=== PATIENT | female | born 1975 | race Caucasian/White ===

== ENCOUNTER 2017-11-20 19:23 | Emergency (ER) | payer OTHER ==
--- OUTSIDE RECORDS SUMMARY | 2017-11-20 19:25 | XMS REPORT | Summary of Care ---
:1975 Author Organization [facility] [place] Address [address] [place], [place] [address]- Encounter HQ Encntr_alias(FIN) [id number] Date(s): 03/28/16 - 03/28/16 [facility] [place] [id number] [place] [address], [address] [place] [address]- [id number] Discharge Disposition: Home or Self Care Attending Physician: Minh Taylor MD Vital Signs No data available for this section Problem List Condition Effective Dates Status Health Status Informant Hypertension(Confirmed) Resolved Obesity(Confirmed) Active Premature ovarian failure(Confirmed) Resolved Allergies, Adverse Reactions, Alerts Substance Reaction Severity Status NKDA Active Medications No data available for this section Results No data available for this section Immunizations Given and Recorded Vaccine Date Status Refusal Reason diphtheria/pertussis, acel/tetanus adult1 12/20/15 Given influenza virus vaccine, inactivated2 02/25/16 Given 1Result Comment: [facility]:[id number] No [id number] Comment: [facility]#[id number] Procedures Procedure Date Related Diagnosis Body Site section Social History Social History Type Response Smoking Status Never smoker; Exposure to Tobacco Smoke None; Cigarette Smoking Last 365 Days No; Reg Smoking Cessation Counseling No Assessment and Plan No data available for this section
[2017-11-20 20:57] LABS: Urine Blood 2+ (NEG); Urine Glucose NEGATIVE (NEG); Urine Protein 1+ (NEG); Urine Specific Gravity 1.015 (1.005-1.030)
[2017-11-20 21:12] LABS: Basophils % 0.3 % (0-1.3); Eosinophils % 2.8 % (0-4.4); Hematocrit 36.6 % (36.0-45.0); Lymphocytes % 19.6 % (15.3-44.8); MCV 91.6 fL (80-100); MPV 8.9 fL (7.6-11.3); Monocytes % 8.8 % (3.3-12.3); RBC Red Blood Cell Count 3.99 M/uL (3.86-4.86)
[2017-11-20 21:13] LABS: Absolute Lymphocytes (CBC) 1.3 K/uL (0.7-4.9); Absolute Monocytes 0.6 K/uL (0.1-1.3); Absolute Neutrophil 4.5 K/uL (1.8-8.0)
[2017-11-20 21:30] LABS: Bilirubin Total 0.5 mg/dL (0.2-1.0); Protein, Total 7.4 g/dL (6.4-8.2)
--- NOTE | 2017-11-20 22:15 | ER ---
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 ak1 Transition of care: patient was not received from another setting of care. Onset of symptoms is unknown. Risk Assessment: Do you want to hurt yourself or someone else? Patient reports no desire to harm self or others. Initial Sepsis Screen: Does the patient meet any 2 criteria? No. Patient's initial sepsis screen is negative. Does the patient have a suspected source of infection? No. Patient's initial sepsis screen is negative. Care prior to arrival: None. 19:51 Method Of Arrival: Ambulatory ak1 19:51 Acuity: MARCO ANTONIO 3 ak1 Triage Assessment: 19:52 Headache History: The patient has had previous headaches and this one is less severe ak1 than previous episodes. General: Appears in no apparent distress. Behavior is calm, cooperative. Pain: Pain currently is 5 out of 10 on a pain scale. 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 EENT: No signs and/or symptoms were reported regarding the EENT system. Neuro: Level of Consciousness is awake, alert, obeys commands, Oriented to person, place, time, situation, Professor Of Counseling are equal bilaterally Moves all extremities. Gait is steady, Speech is normal, Facial symmetry appears normal, Pupils are PERRLA. Cardiovascular: No deficits noted. Respiratory: Reports shortness of breath. GI: Reports nausea. : No signs and/or symptoms were reported regarding the genitourinary system. Derm: No signs and/or symptoms reported regarding the dermatologic system. Musculoskeletal: Reports pain in face, back and left leg. 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 - Social history:: Smoking status: Patient/guardian denies using tobacco. - Ebola Screening: : No symptoms or risks identified at this time. Screenin:01 Abuse screen: Denies threats or abuse. Denies injuries from another. Nutritional bp screening: No deficits noted. Tuberculosis screening: No symptoms or risk factors identified. Fall Risk None identified. Assessment: 19:59 General: Appears in no apparent distress. comfortable, slender, Behavior is bp cooperative, appropriate for age, anxious. Pain: Complains of pain in head. Neuro: Level of Consciousness is awake, alert, obeys commands, Oriented to person, place, time, situation, Appropriate for age. Cardiovascular: No deficits noted. Respiratory: Airway is patent Respiratory effort is even, unlabored, Respiratory pattern is regular, symmetrical. GI: No signs and/or symptoms were reported involving the gastrointestinal system. : No signs and/or symptoms were reported regarding the genitourinary system. EENT: No deficits noted. Derm: No deficits noted. Musculoskeletal: Circulation, motion, and sensation intact. Range of motion: intact in all extremities. 21:45 Reassessment: ALL CURRENT ORDERS COMPLETED, DISPO PENDING. VS STABLE ON MONITOR. 22:15 Reassessment: D/C ON HOLD FOR CT STONE AND RESULTS. 22:28 Reassessment: PT TO CT WITH SENIOR ACCOUNTING ANALYST. 23:22 Reassessment: PT D/C HOME AMBULATORY, DX WITH SCIATICA AND CKD. bp Vital Signs: 19:52 BP 117 / 92; Pulse 92; Resp 18; Temp 98.2; Pulse Ox 100% on R/A; Weight 81.65 kg (R); ak1 Height 5 ft. 6 in. (167.64 cm) (R); Pain 6/10; 21:45 BP 104 / 64; Pulse 84; Resp 16; Pulse Ox 100% ; wh 22:15 BP 103 / 73; Pulse 77; Resp 14; Pulse Ox 100% ; wh 23:15 BP 109 / 80; Pulse 73; Resp 16; Pulse Ox 100% ; bp 19:52 Body Mass Index 29.05 (81.65 kg, 167.64 cm) ak1 ED Course: 19:24 Patient arrived in ED. es 19:52 Triage completed. ak1 19:52 Arm band placed on Patient placed in waiting room, Patient notified of wait time. ak1 19:58 Lyle Rivero MD is Attending Physician. ps1 19:59 Monty Underwood, RN is Primary Nurse. bp 20:01 Patient has correct armband on for positive identification. Bed in low position. Call bp light in reach. 22:29 No provider procedures requiring assistance completed. Patient did not have IV access during this emergency room visit. 22:32 Stone Protocol In Process Unspecified. EDMS Administered Medications: No medications were administered Outcome: 22:15 Discharge ordered by MD. ps1 23:22 Discharged to home ambulatory. bp 23:22 Condition: stable 23:22 Discharge instructions given to patient, Instructed on discharge instructions, follow up and referral plans. medication usage, Demonstrated understanding of instructions, follow-up care, medications, Prescriptions given X 2. 23:24 Patient left the ED. bp Signatures: Dispatcher [employer] EDMS Marija Lebron Amber RN RN ak1 Ang Ho Monty Underwood, RN RN bp Lyle Rivero MD MD ps1 Corrections: (The following items were deleted from the chart) 19:54 19:51 Acuity: MARCO ANTONIO 4 ak1 ak1 22:29 22:24 Reassessment: D/C ON HOLD FOR CT STONE AND RESULTS [facility]
--- NOTE | 2017-11-20 22:16 | EDPHYS ---
Physician Documentation [facility] Name: Miri Ruelas Age: 41 yrs Sex: Female : 1975 Arrival Date: 11/20/2017 Time: 19:24 Bed 15 Private MD: ED Physician Lyle Rivero HPI: 11/20 23:19 This 41 yrs old Female presents to ER via Ambulatory with complaints of ps1 Fever, Headache, Back Pain. 23:19 patient has a history of lupus and CKD. Presenting with left lower back pain that ps1 radiates down the leg. She states that this has been intermittent for some time. She is concerned because of her kidney 2/2 lupus. Pain rated as moderate. No urinary symptoms. Has had fatigue. No saddle signs or urinary complaints. Not immunocompromised. . 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 - Social history:: Smoking status: Patient/guardian denies using tobacco. - Ebola Screening: : No symptoms or risks identified at this time. ROS: 23:19 Constitutional: Negative for fever, chills, and weight loss, Eyes: Negative for injury, ps1 pain, redness, and discharge, Cardiovascular: Negative for chest pain, palpitations, and edema, Respiratory: Negative for shortness of breath, cough, wheezing, and pleuritic chest pain, Abdomen/GI: Negative for abdominal pain, nausea, vomiting, diarrhea, and constipation. 23:19 MS/Extremity: Negative for injury and deformity, Skin: Negative for injury, rash, and discoloration, Neuro: Negative for headache, weakness, numbness, tingling, and seizure. 23:19 Back: Positive for pain with movement. Exam: 23:19 Constitutional: This is a well developed, well nourished patient who is awake, alert, ps1 and in no acute distress. Head/Face: Normocephalic, atraumatic. Eyes: Pupils equal round and reactive to light, extra-ocular motions intact. Lids and lashes normal. Conjunctiva and sclera are non-icteric and not injected. Chest/axilla: Normal chest wall appearance and motion. Nontender with no deformity. No lesions are appreciated. Cardiovascular: Regular rate and rhythm. No gallops, murmurs, or rubs. Normal PMI, no JVD. No pulse deficits. Respiratory: Lungs have equal breath sounds bilaterally, clear to auscultation and percussion. No rales, rhonchi or wheezes noted. No increased work of breathing, no retractions or nasal flaring. Abdomen/GI: Soft, non-tender, with normal bowel sounds. No distension or tympany. No guarding or rebound. No evidence of tenderness throughout. Back: No spinal tenderness. No costovertebral tenderness. Full range of motion. Skin: Warm, dry with normal turgor. Normal color with no rashes, no lesions, and no evidence of cellulitis. MS/ Extremity: Pulses equal, no cyanosis. Neurovascular intact. Full, normal range of motion. Neuro: Awake and alert, GCS 15, oriented to person, place, time, and situation. Cranial nerves II-XII grossly intact. Sensory grossly intact. Psych: Awake, alert, with orientation to person, place and time. Behavior, mood, and affect are within normal limits. Vital Signs: 19:52 BP 117 / 92; Pulse 92; Resp 18; Temp 98.2; Pulse Ox 100% on R/A; Weight 81.65 kg (R); ak1 Height 5 ft. 6 in. (167.64 cm) (R); Pain 6/10; 21:45 BP 104 / 64; Pulse 84; Resp 16; Pulse Ox 100% ; wh 22:15 BP 103 / 73; Pulse 77; Resp 14; Pulse Ox 100% ; wh 23:15 BP 109 / 80; Pulse 73; Resp 16; Pulse Ox 100% ; bp 19:52 Body Mass Index 29.05 (81.65 kg, 167.64 cm) ak1 MDM: 20:18 Patient medically screened. ps1 23:19 Data reviewed: vital signs, nurses notes, lab test result(s), urinalysis, hematuria, ps1 and as a result, I will order radiologic studie(s), CT scan. 23:19 Data reviewed: radiologic studies, CT scan, and as a result, I will discharge patient. ps1 Special discussion: I discussed with the patient/guardian in detail that at this point there is no indication for admission to the hospital. It is understood, however, that if the symptoms persist or worsen the patient needs to return immediately for re-evaluation. Further emergent ED testing is not indicated at this point in time. I discussed with the patient/guardian in detail the need to arrange with the PCP or specialist further outpatient testing. 11/20 20:19 Order name: CBC with Diff; Complete Time: 21:24 ps1 11/20 20:19 Order name: CMP; Complete Time: 21:58 ps1 11/20 20:51 Order name: Urine Dipstick--Ancillary (enter results); Complete Time: 21:01 ms 11/20 20:51 Order name: Urine --Ancillary (enter results); Complete Time: 21:01 ms 11/20 22:29 Order name: Stone Protocol EDPR 11/20 20:19 Order name: Urine Dipstick-Ancillary (obtain specimen); Complete Time: 21:25 ps1 Administered Medications: No medications were administered Disposition: 11/20/17 22:15 Discharged to Home. Impression: Sciatica, left side, chronic kidney disease. - Condition is Stable. - Discharge Instructions: Sciatica. - Prescriptions for Robaxin 500 mg Oral Tablet - take 2 tablet by ORAL route every 6 hours As needed; 40 tablet. Tramadol 50 mg Oral Tablet - take 1 tablet by ORAL route every 8 hours as needed; 12 tablet. - Work release form, Medication Reconciliation Form, Thank You Letter, Antibiotic Education, Prescription Opioid Use form. - Follow up: Private Physician; When: As needed; Reason: Recheck today's complaints, Continuance of care, Re-evaluation by your physician. Follow up: Emergency Department; When: As needed; Reason: Fever > 102 F, Worsening of condition. - Problem is new. - Symptoms are unchanged. Signatures: Dispatcher [facility] Jessika Menjivar RN RN ak1 Monty Underwood RN RN Lyle Arana MD MD ps1 Corrections: (The following items were deleted from the chart) 22:29 22:17 Abdomen Pelvis Wo Con+CT.RAD.BRZ ordered. [facility] 23:24 22:15 11/20/2017 22:15 Discharged to Home. Impression: Sciatica, left side; chronic bp kidney disease. Condition is Stable. Forms are Medication Reconciliation Form, Thank You Letter, Antibiotic Education, Prescription Opioid Use. Follow up: Private Physician; When: As needed; Reason: Recheck today's complaints, Continuance of care, Re-evaluation by your physician. Follow up: Emergency Department; When: As needed; Reason: Fever > 102 F, Worsening of condition. Problem is new. Symptoms are unchanged. ps1
--- NOTE | 2017-11-21 08:15 | RAD REPORT ---
EXAM DESCRIPTION: CT - Stone Protocol - 11/21/2017 4:38 am CLINICAL HISTORY: Flank pain. left flank pain COMPARISON: No comparisons TECHNIQUE: Axial images were obtained without oral or IV contrast. Lack of contrast limits solid org an and vascular assessment. The [id number] spans the entirety of the system partially obscuring uppermost abdomen and lung bases. Coronal reformatted images were obtained and reviewed. All CT scans are performed using dose optimization technique as appropriate and may include automated exposure control or mA/KV adjustment according to patient size. FINDINGS: The lower lung house are clear. Imaged portions of the liver and spleen show no suspicious findings on non-contrast imaging. The panc reas and adrenal glands are normal. No pathologic lymphadenopathy in the abdomen or pelvis. No urinary tract stones or obstructive uropathy. Both kidneys are somewhat small in size. No bowel obstruction, free air, free fluid or abscess. Normal appendix noted. No significant bony abnormality. IMPRESSION: No urinary tract stones or obstructive uropathy.
== END 2017-11-20 23:24 | disposition home or self-care (01) ==
LOC: ER 19:23
DX: M54.32 Sciatica, left side (principal); N18.9 Chronic kidney disease, unspecified
CPT/HCPCS: 36415; 74176; 76377; 80053; 81003; 81025; 85025; 99283